=== PATIENT | female | born 1960 | race African-American/Black ===

== ENCOUNTER 2024-07-08 11:18 | Emergency (ER) | payer OTHER ==
[~2024-07-08] VITALS: Ht 165.1 cm; Wt 72.7 kg
[2024-07-08] MEDS ORDERED: ALBU18HF12 IH (11:21)
[2024-07-08 11:30] VITALS: BP 149/103; PULSE 72; RESP 18; TEMP 98.2; O2SAT 98
[2024-07-08] MEDS: OxyCODONE HCL/ACETAMINOPHEN 5-325 MG TABLET PO ONE (14:45)
== END 2024-07-08 14:45 | disposition home or self-care (01) ==
LOC: EMS 11:22
DX: S80.02XA Contusion of left knee, initial encounter (principal); S80.01XA Contusion of right knee, initial encounter; G89.4 Chronic pain syndrome; W22.8XXA Striking against or struck by other objects, initial encounter; Y93.89 Activity, other specified; Y92.811 Bus as the place of occurrence of the external cause; Y99.8 Other external cause status
CPT/HCPCS: 99283